=== PATIENT | male | born 1965 | race Caucasian/White ===

== ENCOUNTER 2021-01-20 17:51 | Inpatient (IN) | payer OTHER ==
[~2021-01-20] VITALS: Ht 167.6 cm; Wt 78.5 kg
[2021-01-20 17:51] VITALS: BP_SYST 138
[~2021-01-20 17:51] MED LIST: BUPIVACAINE /DEX PF 0.75% SPINAL 2 ML AMP INJ ONE; BUPIVACAINE /EPINEPHRINE/PF 0.5% 30 ML VIAL INJ ONE; D5W 100 ML IV.SOLN IV ONE; NS 1000 ML IV.SOLN IV ONE; ceFAZolin SODIUM 1 GM VIAL IV ONE
[2021-01-20] MEDS ORDERED: IBUPROFEN 600 MG TABLET PO ONE (18:00)
[2021-01-20] MEDS ORDERED: MORPHINE 4 MG INJ. 4 MG/ML VIAL IVP ONE (18:30)
[2021-01-20 18:42] LABS: BASOPHILS % (AUTO) 0.5 % (0.0-2.0); EOSINOPHILS % (AUTO) 0.7 % (0.0-4.0); HEMATOCRIT 43.6 % (36-54); HEMOGLOBIN 14.8 g/dL (14.0-18.0); LYMPHOCYTES # (AUTO) 1.5 K/uL (1.0-5.5); LYMPHOCYTES % (AUTO) 19.9 % (20.5-51.5); MEAN CORPUSCULAR HEMOGLOBIN 34 pg (27-31); MEAN CORPUSCULAR HGB CONC 34 % (32-36); MEAN CORPUSCULAR VOLUME 101 fL (79.0-98.0); MONOCYTES # (AUTO) 0.4 K/uL (0.0-1.0); MONOCYTES % (AUTO) 5.7 % (1.7-9.3); NEUTROPHILS # (AUTO) 5.3 K/uL (1.8-7.7); NEUTROPHILS % (AUTO) 73.2 % (40.0-70.0); PLATELET COUNT (AUTO) 148 K/uL (130-430); RED BLOOD CELL COUNT(AUTO) 4.31 MIL/uL (4.2-6.2); RED CELL DISTRIBUTION WIDTH 13.1 % (9.0-15.0); WHITE BLOOD COUNT (AUTO) 7.3 K/uL (4.8-10.8)
[2021-01-20] MEDS ORDERED: LISI-209 PO (18:46)
[2021-01-20 18:53] LABS: INR 0.9 (0.80-1.20); PROTHROMBIN TIME 9.3 SECS (9.5-12.5)
[2021-01-20 18:58] LABS: CREATININE 1.55 mg/dL (0.55-1.30); POTASSIUM 3.7 mmol/L (3.5-5.1)
[2021-01-20 19:03] LABS: TOTAL BILIRUBIN 0.5 mg/dL (0.0-1.0)
[2021-01-20] MEDS ORDERED: ONDANSETRON HCL 4 MG/2 ML VIAL IVP PRN (20:00)
[2021-01-20] MEDS ORDERED: DIPH-TET-PERTUS Vaccine 0.5 ML VIAL (ADACEL) I.M. ONE (20:00)
[2021-01-20] MEDS: NACL 0.9% 1,000 ML IV SCH (20:24)
[2021-01-20] MEDS: MORPHINE 4 MG INJ. 4 MG/ML VIAL IVP PRN (22:13)
[2021-01-20 22:19] VITALS: BP_SYST 105
[2021-01-20] MEDS ORDERED: chlordiazePOXIDE HCL 25 MG CAPSULE PO ONE (23:00)
[2021-01-20] MEDS ORDERED: LORazepam 2 MG/ML VIAL IVP PRN (23:00)
[2021-01-20] MEDS ORDERED: AMPICILLIN SODIUM 1 GM VIAL ONE (23:34)
[2021-01-20] MEDS: THIAMINE HCL 100 MG TABLET PO SCH (23:53)
[2021-01-20] MEDS: AMPICILLIN SODIUM 1 GM in NS 50 ML IV SCH (23:53)
[2021-01-21] MEDS ORDERED: AMPICILLIN SODIUM 1 GM VIAL ONE (03:55)
[2021-01-21] MEDS: NACL 0.9% 1,000 ML IV SCH ×2 (05:58→17:56)
[2021-01-21] MEDS: AMPICILLIN SODIUM 1 GM in NS 50 ML IV SCH ×3 (05:58→18:00)
[2021-01-21] MEDS: MORPHINE 4 MG INJ. 4 MG/ML VIAL IVP PRN (06:11)
[2021-01-21] MEDS ORDERED: chlordiazePOXIDE HCL 25 MG CAPSULE PO SCH (09:00)
[2021-01-21] MEDS: FOLIC ACID 1 MG TABLET PO SCH (09:00)
[2021-01-21] MEDS: THIAMINE HCL 100 MG TABLET PO SCH (09:00)
[2021-01-21 09:17] VITALS: BP_SYST 112
[2021-01-21] MEDS ORDERED: NALOXONE HCL 0.4 MG/ML AMP (NARCAN) IVP PRN (11:30)
[2021-01-21 12:05] LABS: BASOPHILS % (AUTO) 0.4 % (0.0-2.0); EOSINOPHILS % (AUTO) 0.1 % (0.0-4.0); MONOCYTES # (AUTO) 0.6 K/uL (0.0-1.0); RED BLOOD CELL COUNT(AUTO) 3.38 MIL/uL (4.2-6.2)
[2021-01-21] MEDS ORDERED: MORPHINE 2 MG/ML INJ. SYRINGE ONE (12:12)
[2021-01-21 12:13] VITALS: BP_SYST 118
[2021-01-21 12:13] LABS: HEMATOCRIT 34.7 % (36-54); HEMOGLOBIN 11.8 g/dL (14.0-18.0); LYMPHOCYTES # (AUTO) 0.9 K/uL (1.0-5.5); LYMPHOCYTES % (AUTO) 17.8 % (20.5-51.5); MEAN CORPUSCULAR HEMOGLOBIN 35 pg (27-31); MEAN CORPUSCULAR HGB CONC 34 % (32-36); MEAN CORPUSCULAR VOLUME 103 fL (79.0-98.0); NEUTROPHILS # (AUTO) 3.6 K/uL (1.8-7.7); NEUTROPHILS % (AUTO) 70.7 % (40.0-70.0); PLATELET COUNT (AUTO) 112 K/uL (130-430); RED CELL DISTRIBUTION WIDTH 13.1 % (9.0-15.0)
[2021-01-21] MEDS: MORPHINE 2 MG/ML INJ. SYRINGE IVP PRN ×2 (12:14→17:44)
[2021-01-21 12:15] LABS: CALCIUM 8.1 mg/dL (8.4-11.0); CREATININE 1.07 mg/dL (0.55-1.30); POTASSIUM 4.4 mmol/L (3.5-5.1)
[2021-01-21 12:20] LABS: ALBUMIN 3.2 g/dL (3.4-4.8); TOTAL BILIRUBIN 0.5 mg/dL (0.0-1.0)
[2021-01-21] MEDS: chlordiazePOXIDE HCL 25 MG CAPSULE PO SCH ×3 (13:00→22:51)
[2021-01-21 16:19] VITALS: BP_SYST 112
[2021-01-21 20:00] VITALS: BP_SYST 115
[2021-01-21 20:32] LABS: BILIRUBIN,URINE NEGATIVE (NEGATIVE); BLOOD, URINE NEGATIVE (NEGATIVE); CLARITY/URINE CLEAR (CLEAR); COLOR,URINE YELLOW (YELLOW); GLUCOSE,URINE NEGATIVE (NEGATIVE); KETONES,URINE 1+ (NEGATIVE); LEUKOCYTE ESTERASE ,URINE NEGATIVE (NEGATIVE); NITRITE, URINE NEGATIVE (NEGATIVE); PH,URINE 5.5 (5.0-8.0); PROTEIN URINE NEGATIVE (NEGATIVE); UROBILINOGEN,URINE 0.2 (0.2-1.0)
[2021-01-22] MEDS: MORPHINE 4 MG INJ. 4 MG/ML VIAL IVP PRN ×4 (00:12→20:12)
[2021-01-22] MEDS: AMPICILLIN SODIUM 1 GM in NS 50 ML IV SCH ×4 (00:16→18:37)
[2021-01-22 01:14] VITALS: BP_SYST 129
[2021-01-22] MEDS: NACL 0.9% 1,000 ML IV SCH ×3 (06:01→22:00)
[2021-01-22 06:49] LABS: ALBUMIN 2.9 g/dL (3.4-4.8); CREATININE 0.92 mg/dL (0.55-1.30); POTASSIUM 3.9 mmol/L (3.5-5.1); TOTAL BILIRUBIN 0.5 mg/dL (0.0-1.0)
[2021-01-22 07:01] LABS: BASOPHILS % (AUTO) 0.5 % (0.0-2.0); EOSINOPHILS % (AUTO) 0.5 % (0.0-4.0); HEMATOCRIT 31.5 % (36-54); HEMOGLOBIN 10.6 g/dL (14.0-18.0); LYMPHOCYTES # (AUTO) 0.9 K/uL (1.0-5.5); LYMPHOCYTES % (AUTO) 15.9 % (20.5-51.5); MEAN CORPUSCULAR HEMOGLOBIN 35 pg (27-31); MEAN CORPUSCULAR HGB CONC 34 % (32-36); MEAN CORPUSCULAR VOLUME 103 fL (79.0-98.0); MONOCYTES # (AUTO) 0.6 K/uL (0.0-1.0); NEUTROPHILS # (AUTO) 4.2 K/uL (1.8-7.7); NEUTROPHILS % (AUTO) 73.1 % (40.0-70.0); PLATELET COUNT (AUTO) 98 K/uL (130-430); RED BLOOD CELL COUNT(AUTO) 3.05 MIL/uL (4.2-6.2); RED CELL DISTRIBUTION WIDTH 13.1 % (9.0-15.0); WHITE BLOOD COUNT (AUTO) 5.7 K/uL (4.8-10.8)
[2021-01-22 08:01] VITALS: BP_SYST 122
[2021-01-22] MEDS: chlordiazePOXIDE HCL 25 MG CAPSULE PO SCH ×4 (11:10→20:13)
[2021-01-22] MEDS: THIAMINE HCL 100 MG TABLET PO SCH (11:10)
[2021-01-22] MEDS: FOLIC ACID 1 MG TABLET PO SCH (11:10)
[2021-01-22 11:28] VITALS: BP_SYST 121
[2021-01-22 15:38] VITALS: BP_SYST 119
[2021-01-22 19:00] VITALS: BP_SYST 127
[2021-01-22 20:00] VITALS: BP_SYST 127
[2021-01-23] MEDS: NACL 0.9% 1,000 ML IV SCH (00:19)
[2021-01-23] MEDS: AMPICILLIN SODIUM 1 GM in NS 50 ML IV SCH ×3 (00:20→12:00)
[2021-01-23 00:40] VITALS: BP_SYST 115
[2021-01-23] MEDS: MORPHINE 4 MG INJ. 4 MG/ML VIAL IVP PRN ×4 (02:49→20:29)
[2021-01-23 06:37] LABS: BASOPHILS % (AUTO) 0.6 % (0.0-2.0); EOSINOPHILS # (AUTO) 0.1 K/uL (0.0-0.4); EOSINOPHILS % (AUTO) 2.6 % (0.0-4.0); HEMATOCRIT 27.8 % (36-54); HEMOGLOBIN 9.5 g/dL (14.0-18.0); LYMPHOCYTES # (AUTO) 1.3 K/uL (1.0-5.5); MEAN CORPUSCULAR HEMOGLOBIN 35 pg (27-31); MEAN CORPUSCULAR HGB CONC 34 % (32-36); MEAN CORPUSCULAR VOLUME 103 fL (79.0-98.0); MONOCYTES # (AUTO) 0.4 K/uL (0.0-1.0); MONOCYTES % (AUTO) 9.5 % (1.7-9.3); NEUTROPHILS # (AUTO) 2.8 K/uL (1.8-7.7); NEUTROPHILS % (AUTO) 60.3 % (40.0-70.0); PLATELET COUNT (AUTO) 103 K/uL (130-430); RED CELL DISTRIBUTION WIDTH 12.8 % (9.0-15.0); WHITE BLOOD COUNT (AUTO) 4.7 K/uL (4.8-10.8)
[2021-01-23 06:57] LABS: ALBUMIN 2.6 g/dL (3.4-4.8); CALCIUM 8.1 mg/dL (8.4-11.0); CREATININE 0.99 mg/dL (0.55-1.30); POTASSIUM 4.1 mmol/L (3.5-5.1); TOTAL BILIRUBIN 0.5 mg/dL (0.0-1.0)
[2021-01-23 08:06] VITALS: BP_SYST 116
[2021-01-23] MEDS: FOLIC ACID 1 MG TABLET PO SCH (08:12)
[2021-01-23] MEDS: chlordiazePOXIDE HCL 25 MG CAPSULE PO SCH ×4 (08:12→20:15)
[2021-01-23] MEDS: THIAMINE HCL 100 MG TABLET PO SCH (08:12)
[2021-01-23] MEDS ORDERED: fentaNYL CITRATE/PF 100 MCG/2 ML AMP IVP PRN ×2 (10:15)
[2021-01-23] MEDS ORDERED: ONDANSETRON HCL 4 MG/2 ML VIAL IVP PRN (10:15)
[2021-01-23] MEDS ORDERED: POLYMYXIN 500,000/BACIT.10,000 UNITS in NS IRR 1 L IR ONE (11:43)
[2021-01-23] MEDS ORDERED: BUPIVACAINE LIPOSOME/PF 266 MG/20 ML VIAL INFIL ONE (12:38)
[2021-01-23 14:45] VITALS: BP_SYST 111
[2021-01-23] MEDS: ACETAMINOPHEN 325 MG TABLET PO PRN (16:38)
[2021-01-23] MEDS: D5LR 1,000 ML IV SCH (17:10)
[2021-01-23 19:50] VITALS: BP_SYST 122
[2021-01-23] MEDS: CEFAZOLIN 1 GM IVPB PREMIX 50 ML IV SCH (22:43)
[2021-01-23] MEDS: HYDROmorphone 1 MG/ML INJ. CARTRIDGE IVP PRN (22:52)
[2021-01-24] VITALS: BP_SYST 115
[2021-01-24] MEDS: D5LR 1,000 ML IV SCH ×3 (03:02→23:58)
[2021-01-24] MEDS: HYDROmorphone 1 MG/ML INJ. CARTRIDGE IVP PRN ×5 (03:09→21:33)
[2021-01-24] MEDS: CEFAZOLIN 1 GM IVPB PREMIX 50 ML IV SCH (05:23)
[2021-01-24 07:48] LABS: BASOPHILS % (AUTO) 0.3 % (0.0-2.0); HEMATOCRIT 25.5 % (36-54); LYMPHOCYTES # (AUTO) 0.5 K/uL (1.0-5.5); LYMPHOCYTES % (AUTO) 8.9 % (20.5-51.5); MEAN CORPUSCULAR HEMOGLOBIN 35 pg (27-31); MEAN CORPUSCULAR HGB CONC 34 % (32-36); MEAN CORPUSCULAR VOLUME 101 fL (79.0-98.0); MONOCYTES # (AUTO) 0.6 K/uL (0.0-1.0); MONOCYTES % (AUTO) 9.8 % (1.7-9.3); NEUTROPHILS # (AUTO) 4.6 K/uL (1.8-7.7); PLATELET COUNT (AUTO) 123 K/uL (130-430); RED BLOOD CELL COUNT(AUTO) 2.52 MIL/uL (4.2-6.2); RED CELL DISTRIBUTION WIDTH 12.6 % (9.0-15.0); WHITE BLOOD COUNT (AUTO) 5.7 K/uL (4.8-10.8)
[2021-01-24 08:00] VITALS: BP_SYST 137
[2021-01-24 08:46] LABS: HEMOGLOBIN 8.8 g/dL (14.0-18.0)
[2021-01-24] MEDS: lisinopriL 5 MG TABLET PO SCH (10:08)
[2021-01-24] MEDS: THIAMINE HCL 100 MG TABLET PO SCH (10:08)
[2021-01-24] MEDS: chlordiazePOXIDE HCL 25 MG CAPSULE PO SCH ×4 (10:08→21:31)
[2021-01-24] MEDS: FOLIC ACID 1 MG TABLET PO SCH (10:08)
[2021-01-24 11:26] VITALS: BP_SYST 128
[2021-01-24 15:01] VITALS: BP_SYST 130
[2021-01-24 19:52] VITALS: BP_SYST 109
[2021-01-24] MEDS: ACETAMINOPHEN 325 MG TABLET PO PRN (19:58)
[2021-01-24] MEDS: TEMAZEPAM 15 MG CAPSULE PO SCH (21:00)
[2021-01-24] MEDS: ENOXAPARIN SODIUM 40 MG/0.4 ML SYRINGE SUBCUT SCH (21:32)
[2021-01-24 23:52] VITALS: BP_SYST 101
[2021-01-25 06:51] LABS: BASOPHILS % (AUTO) 0.5 % (0.0-2.0); EOSINOPHILS # (AUTO) 0.1 K/uL (0.0-0.4); EOSINOPHILS % (AUTO) 2.3 % (0.0-4.0); HEMATOCRIT 24.3 % (36-54); HEMOGLOBIN 8.2 g/dL (14.0-18.0); LYMPHOCYTES # (AUTO) 0.8 K/uL (1.0-5.5); LYMPHOCYTES % (AUTO) 15.2 % (20.5-51.5); MEAN CORPUSCULAR HEMOGLOBIN 35 pg (27-31); MEAN CORPUSCULAR HGB CONC 34 % (32-36); MEAN CORPUSCULAR VOLUME 103 fL (79.0-98.0); MONOCYTES # (AUTO) 0.6 K/uL (0.0-1.0); MONOCYTES % (AUTO) 10.7 % (1.7-9.3); NEUTROPHILS # (AUTO) 3.8 K/uL (1.8-7.7); NEUTROPHILS % (AUTO) 71.3 % (40.0-70.0); PLATELET COUNT (AUTO) 128 K/uL (130-430); RED BLOOD CELL COUNT(AUTO) 2.37 MIL/uL (4.2-6.2); RED CELL DISTRIBUTION WIDTH 12.8 % (9.0-15.0); WHITE BLOOD COUNT (AUTO) 5.3 K/uL (4.8-10.8)
[2021-01-25 07:00] LABS: CALCIUM 8.3 mg/dL (8.4-11.0); POTASSIUM 4.1 mmol/L (3.5-5.1)
[2021-01-25 08:00] VITALS: BP_SYST 103
[2021-01-25] MEDS: THIAMINE HCL 100 MG TABLET PO SCH (08:33)
[2021-01-25] MEDS: FOLIC ACID 1 MG TABLET PO SCH (08:33)
[2021-01-25] MEDS: HYDROmorphone 1 MG/ML INJ. CARTRIDGE IVP PRN (08:36)
[2021-01-25] MEDS: chlordiazePOXIDE HCL 25 MG CAPSULE PO SCH ×2 (08:36→13:00)
[2021-01-25] MEDS: lisinopriL 5 MG TABLET PO SCH (09:00)
[2021-01-25] MEDS: D5LR 1,000 ML IV SCH (10:52)
[2021-01-25 11:28] VITALS: BP_SYST 108
[2021-01-25] MEDS: SOD FERRIC GLUC COMPLEX/SUC 125 MG in NS 100 ML IV SCH (13:21)
[2021-01-25 13:27] LABS: TOTAL IRON BIND. CAPACITY 158 ug/dL (250-450)
[2021-01-25] MEDS: MORPHINE 4 MG INJ. 4 MG/ML VIAL IVP PRN (15:14)
[2021-01-25 15:18] VITALS: BP_SYST 117
[2021-01-25] MEDS ORDERED: NALOXONE HCL 0.4 MG/ML AMP (NARCAN) IVP PRN ×2 (15:30)
[2021-01-25] MEDS ORDERED: BISACODYL 10 MG/SUPPOSITORY RC PRN (15:30)
[2021-01-25] MEDS ORDERED: BISACODYL 5 MG TABLET.DR (DULCOLAX) PO PRN (15:30)
[2021-01-25] MEDS ORDERED: MAGNESIUM OXIDE 400 MG TABLET PO ONE (16:00)
[2021-01-25] MEDS ORDERED: DOCUSATE SODIUM 250 MG CAPSULE PO ONE (16:15)
[2021-01-25] MEDS: HYDROcodone/ACETAMIN 10-325 MG TAB PO PRN (19:52)
[2021-01-25 20:00] VITALS: BP_SYST 100
[2021-01-25] MEDS: MAGNESIUM OXIDE 400 MG TABLET PO SCH (21:09)
[2021-01-25] MEDS: TEMAZEPAM 15 MG CAPSULE PO SCH (21:10)
[2021-01-25] MEDS: DOCUSATE SODIUM 250 MG CAPSULE PO SCH (21:10)
[2021-01-25] MEDS: ACETAMINOPHEN 325 MG TABLET PO PRN (21:11)
[2021-01-25] MEDS: ENOXAPARIN SODIUM 40 MG/0.4 ML SYRINGE SUBCUT SCH (21:18)
[2021-01-26] MEDS: D5LR 1,000 ML IV SCH (00:02)
[2021-01-26 00:25] VITALS: BP_SYST 115
[2021-01-26] MEDS: HYDROcodone/ACETAMIN 10-325 MG TAB PO PRN ×5 (04:30→23:03)
[2021-01-26 06:31] LABS: BASOPHILS % (AUTO) 0.7 % (0.0-2.0); EOSINOPHILS # (AUTO) 0.2 K/uL (0.0-0.4); EOSINOPHILS % (AUTO) 6.2 % (0.0-4.0); HEMATOCRIT 22.2 % (36-54); HEMOGLOBIN 7.5 g/dL (14.0-18.0); LYMPHOCYTES # (AUTO) 0.8 K/uL (1.0-5.5); LYMPHOCYTES % (AUTO) 22.3 % (20.5-51.5); MEAN CORPUSCULAR HEMOGLOBIN 35 pg (27-31); MEAN CORPUSCULAR HGB CONC 34 % (32-36); MEAN CORPUSCULAR VOLUME 102 fL (79.0-98.0); MONOCYTES # (AUTO) 0.4 K/uL (0.0-1.0); MONOCYTES % (AUTO) 10.3 % (1.7-9.3); NEUTROPHILS # (AUTO) 2.3 K/uL (1.8-7.7); NEUTROPHILS % (AUTO) 60.5 % (40.0-70.0); PLATELET COUNT (AUTO) 140 K/uL (130-430); RED BLOOD CELL COUNT(AUTO) 2.18 MIL/uL (4.2-6.2); RED CELL DISTRIBUTION WIDTH 12.5 % (9.0-15.0); RETICULOCYTE COUNT 2.4 % (0.5-1.5); WHITE BLOOD COUNT (AUTO) 3.8 K/uL (4.8-10.8)
[2021-01-26 06:34] LABS: CALCIUM 7.9 mg/dL (8.4-11.0); CREATININE 0.96 mg/dL (0.55-1.30)
[2021-01-26 08:00] VITALS: BP_SYST 107
[2021-01-26] MEDS: MAGNESIUM OXIDE 400 MG TABLET PO SCH ×2 (08:13→21:00)
[2021-01-26] MEDS: lisinopriL 5 MG TABLET PO SCH (08:14)
[2021-01-26] MEDS: MULTIVITS,CA,MINERALS/IRON/FA 1 TABLET PO SCH (08:14)
[2021-01-26] MEDS: THIAMINE HCL 100 MG TABLET PO SCH (08:14)
[2021-01-26] MEDS: FOLIC ACID 1 MG TABLET PO SCH (08:14)
[2021-01-26] MEDS: DOCUSATE SODIUM 250 MG CAPSULE PO SCH ×2 (08:14→22:07)
[2021-01-26] MEDS: HYDROmorphone 1 MG/ML INJ. CARTRIDGE IVP PRN (11:18)
[2021-01-26 12:57] VITALS: BP_SYST 110
[2021-01-26] MEDS: SOD FERRIC GLUC COMPLEX/SUC 125 MG in NS 100 ML IV SCH (13:27)
[2021-01-26] MEDS ORDERED: MAGNESIUM CITRATE 300 ML ORAL SOLUTION PO ONE (14:00)
[2021-01-26] MEDS ORDERED: PANTOPRAZOLE SODIUM 40 MG/VIAL (PROTONIX) IVP ONE (14:00)
[2021-01-26 16:00] VITALS: BP_SYST 117
[2021-01-26 20:00] VITALS: BP_SYST 131
[2021-01-26] MEDS: TEMAZEPAM 15 MG CAPSULE PO SCH (22:02)
[2021-01-26] MEDS: PANTOPRAZOLE SODIUM 40 MG/VIAL (PROTONIX) IVP SCH (22:07)
[2021-01-26] MEDS: ENOXAPARIN SODIUM 40 MG/0.4 ML SYRINGE SUBCUT SCH (22:34)
[2021-01-27] MEDS: ACETAMINOPHEN 325 MG TABLET PO PRN (00:08)
[2021-01-27 03:08] VITALS: BP_SYST 128
[2021-01-27] MEDS: HYDROmorphone 1 MG/ML INJ. CARTRIDGE IVP PRN (03:44)
[2021-01-27] MEDS: D5LR 1,000 ML IV SCH (05:29)
[2021-01-27 06:54] LABS: BASOPHILS % (AUTO) 0.8 % (0.0-2.0); EOSINOPHILS # (AUTO) 0.2 K/uL (0.0-0.4); EOSINOPHILS % (AUTO) 4.9 % (0.0-4.0); LYMPHOCYTES # (AUTO) 0.9 K/uL (1.0-5.5); MEAN CORPUSCULAR HEMOGLOBIN 35 pg (27-31); MEAN CORPUSCULAR HGB CONC 34 % (32-36); MEAN CORPUSCULAR VOLUME 102 fL (79.0-98.0); MONOCYTES # (AUTO) 0.3 K/uL (0.0-1.0); MONOCYTES % (AUTO) 7.8 % (1.7-9.3); NEUTROPHILS # (AUTO) 2.4 K/uL (1.8-7.7); NEUTROPHILS % (AUTO) 63.5 % (40.0-70.0); PLATELET COUNT (AUTO) 176 K/uL (130-430); RED BLOOD CELL COUNT(AUTO) 2.08 MIL/uL (4.2-6.2); RED CELL DISTRIBUTION WIDTH 12.8 % (9.0-15.0); WHITE BLOOD COUNT (AUTO) 3.8 K/uL (4.8-10.8)
[2021-01-27 06:59] LABS: CREATININE 0.98 mg/dL (0.55-1.30); POTASSIUM 4.6 mmol/L (3.5-5.1)
[2021-01-27 07:15] LABS: HEMATOCRIT 21.2 % (36-54); HEMOGLOBIN 7.2 g/dL (14.0-18.0)
[2021-01-27] MEDS: MULTIVITS,CA,MINERALS/IRON/FA 1 TABLET PO SCH (08:51)
[2021-01-27] MEDS: THIAMINE HCL 100 MG TABLET PO SCH (08:51)
[2021-01-27] MEDS: FOLIC ACID 1 MG TABLET PO SCH (08:51)
[2021-01-27] MEDS: lisinopriL 5 MG TABLET PO SCH (08:51)
[2021-01-27] MEDS: PANTOPRAZOLE SODIUM 40 MG/VIAL (PROTONIX) IVP SCH ×2 (08:51→21:42)
[2021-01-27] MEDS: DOCUSATE SODIUM 250 MG CAPSULE PO SCH ×2 (08:52→21:41)
[2021-01-27] MEDS: MAGNESIUM OXIDE 400 MG TABLET PO SCH ×2 (08:52→21:42)
[2021-01-27 08:55] VITALS: BP_SYST 112
[2021-01-27] MEDS: HYDROcodone/ACETAMIN 5-325 MG TAB (NORCO/ VICODIN) PO PRN (08:58)
[2021-01-27 12:00] VITALS: BP_SYST 116
[2021-01-27] MEDS: SOD FERRIC GLUC COMPLEX/SUC 125 MG in NS 100 ML IV SCH (14:02)
[2021-01-27 16:12] VITALS: BP_SYST 115
[2021-01-27] MEDS ORDERED: CHOLECALCIFEROL (VITAMIN D3) 5,000 UNIT TABLET PO ONE (17:15)
[2021-01-27] MEDS ORDERED: EPOETIN ALFA 4,000 UNITS/ML VIAL SUBCUT ONE (18:00)
[2021-01-27] MEDS: HYDROcodone/ACETAMIN 10-325 MG TAB PO PRN (19:52)
[2021-01-27 20:00] VITALS: BP_SYST 106
[2021-01-27] MEDS: ENOXAPARIN SODIUM 40 MG/0.4 ML SYRINGE SUBCUT SCH (21:40)
[2021-01-27] MEDS: TEMAZEPAM 15 MG CAPSULE PO SCH (21:42)
[2021-01-28 03:25] VITALS: BP_SYST 119
[2021-01-28] MEDS: D5LR 1,000 ML IV SCH (05:19)
[2021-01-28 06:32] LABS: BASOPHILS % (AUTO) 1.1 % (0.0-2.0); EOSINOPHILS # (AUTO) 0.1 K/uL (0.0-0.4); EOSINOPHILS % (AUTO) 3.7 % (0.0-4.0); HEMOGLOBIN 7.2 g/dL (14.0-18.0); LYMPHOCYTES # (AUTO) 0.6 K/uL (1.0-5.5); LYMPHOCYTES % (AUTO) 15.7 % (20.5-51.5); MEAN CORPUSCULAR HEMOGLOBIN 35 pg (27-31); MEAN CORPUSCULAR HGB CONC 34 % (32-36); MEAN CORPUSCULAR VOLUME 102 fL (79.0-98.0); MONOCYTES # (AUTO) 0.3 K/uL (0.0-1.0); NEUTROPHILS # (AUTO) 2.9 K/uL (1.8-7.7); NEUTROPHILS % (AUTO) 71.5 % (40.0-70.0); PLATELET COUNT (AUTO) 198 K/uL (130-430); RED BLOOD CELL COUNT(AUTO) 2.06 MIL/uL (4.2-6.2); RED CELL DISTRIBUTION WIDTH 12.8 % (9.0-15.0)
[2021-01-28 06:40] LABS: CREATININE 0.92 mg/dL (0.55-1.30); POTASSIUM 3.8 mmol/L (3.5-5.1)
[2021-01-28 07:27] LABS: HEMATOCRIT 20.9 % (36-54)
[2021-01-28 07:56] VITALS: BP_SYST 118
[2021-01-28] MEDS: DOCUSATE SODIUM 250 MG CAPSULE PO SCH ×2 (09:03→21:44)
[2021-01-28] MEDS: THIAMINE HCL 100 MG TABLET PO SCH (09:03)
[2021-01-28] MEDS: FERROUS SULFATE 325 MG TABLET.DR PO SCH ×2 (09:03→21:44)
[2021-01-28] MEDS: FOLIC ACID 1 MG TABLET PO SCH (09:03)
[2021-01-28] MEDS: MULTIVITS,CA,MINERALS/IRON/FA 1 TABLET PO SCH (09:04)
[2021-01-28] MEDS: MAGNESIUM OXIDE 400 MG TABLET PO SCH ×2 (09:04→21:44)
[2021-01-28] MEDS: CHOLECALCIFEROL (VITAMIN D3) 5,000 UNIT TABLET PO SCH (09:04)
[2021-01-28] MEDS: lisinopriL 5 MG TABLET PO SCH (09:04)
[2021-01-28] MEDS ORDERED: EPOETIN ALFA 4,000 UNITS/ML VIAL SUBCUT ONE (09:15)
[2021-01-28] MEDS ORDERED: PANTOPRAZOLE SODIUM 40 MG TAB PO ONE (09:15)
[2021-01-28] MEDS: HYDROcodone/ACETAMIN 5-325 MG TAB (NORCO/ VICODIN) PO PRN ×2 (09:25→19:29)
[2021-01-28] MEDS ORDERED: HYDR-3919 PO (10:02)
[2021-01-28] MEDS ORDERED: [UNRECOGNIZED DRUG - OTHER] PO (10:02)
[2021-01-28] MEDS ORDERED: Bisacodyl Suppository RC (10:02)
[2021-01-28] MEDS ORDERED: CHOL500013 PO (10:02)
[2021-01-28] MEDS ORDERED: TEMA15CA5 PO (10:02)
[2021-01-28] MEDS ORDERED: DOCU250C71 PO (10:02)
[2021-01-28] MEDS ORDERED: IRON PO (10:02)
[2021-01-28] MEDS ORDERED: PRO40 PO (10:02)
[2021-01-28] MEDS ORDERED: BISA-79 PO (10:02)
[2021-01-28] MEDS ORDERED: ACET325T PO (10:02)
[2021-01-28] MEDS ORDERED: MULTIVITS CA MINERALS PO (10:02)
[2021-01-28] MEDS ORDERED: LOVI40 SUBCUT (10:02)
[2021-01-28] MEDS ORDERED: HYDR-3927 PO (10:02)
[2021-01-28] MEDS ORDERED: MAGN400T10 PO (10:02)
[2021-01-28] MEDS: SOD FERRIC GLUC COMPLEX/SUC 125 MG in NS 100 ML IV SCH (10:25)
[2021-01-28 12:36] VITALS: BP_SYST 119
[2021-01-28 16:55] VITALS: BP_SYST 110
[2021-01-28 20:00] VITALS: BP_SYST 119
[2021-01-28] MEDS: PANTOPRAZOLE SODIUM 40 MG TAB PO SCH (21:44)
[2021-01-28] MEDS: ENOXAPARIN SODIUM 40 MG/0.4 ML SYRINGE SUBCUT SCH (21:45)
[2021-01-28] MEDS: TEMAZEPAM 15 MG CAPSULE PO SCH (21:52)
[2021-01-29 00:37] VITALS: BP_SYST 134
[2021-01-29] MEDS: HYDROcodone/ACETAMIN 5-325 MG TAB (NORCO/ VICODIN) PO PRN (04:07)
[2021-01-29 08:45] VITALS: BP_SYST 123
[2021-01-29] MEDS: DOCUSATE SODIUM 250 MG CAPSULE PO SCH (09:00)
[2021-01-29] MEDS: CHOLECALCIFEROL (VITAMIN D3) 5,000 UNIT TABLET PO SCH (09:12)
[2021-01-29] MEDS: THIAMINE HCL 100 MG TABLET PO SCH (09:12)
[2021-01-29] MEDS: FOLIC ACID 1 MG TABLET PO SCH (09:13)
[2021-01-29] MEDS: MAGNESIUM OXIDE 400 MG TABLET PO SCH (09:13)
[2021-01-29] MEDS: PANTOPRAZOLE SODIUM 40 MG TAB PO SCH (09:13)
[2021-01-29] MEDS: FERROUS SULFATE 325 MG TABLET.DR PO SCH (09:13)
[2021-01-29] MEDS: MULTIVITS,CA,MINERALS/IRON/FA 1 TABLET PO SCH (09:13)
[2021-01-29] MEDS: lisinopriL 5 MG TABLET PO SCH (09:14)
[2021-01-29] MEDS: SOD FERRIC GLUC COMPLEX/SUC 125 MG in NS 100 ML IV SCH (09:15)
[2021-01-29] MEDS: HYDROcodone/ACETAMIN 10-325 MG TAB PO PRN (09:21)
[2021-01-29 10:06] VITALS: BP_SYST 127
[2021-01-29 10:24] LABS: BASOPHILS % (AUTO) 0.9 % (0.0-2.0); EOSINOPHILS # (AUTO) 0.1 K/uL (0.0-0.4); EOSINOPHILS % (AUTO) 2.8 % (0.0-4.0); HEMATOCRIT 24.8 % (36-54); HEMOGLOBIN 8.5 g/dL (14.0-18.0); LYMPHOCYTES # (AUTO) 0.8 K/uL (1.0-5.5); LYMPHOCYTES % (AUTO) 16.3 % (20.5-51.5); MEAN CORPUSCULAR HEMOGLOBIN 35 pg (27-31); MEAN CORPUSCULAR HGB CONC 34 % (32-36); MEAN CORPUSCULAR VOLUME 103 fL (79.0-98.0); MONOCYTES # (AUTO) 0.4 K/uL (0.0-1.0); MONOCYTES % (AUTO) 7.4 % (1.7-9.3); NEUTROPHILS # (AUTO) 3.7 K/uL (1.8-7.7); NEUTROPHILS % (AUTO) 72.6 % (40.0-70.0); PLATELET COUNT (AUTO) 255 K/uL (130-430); RED BLOOD CELL COUNT(AUTO) 2.41 MIL/uL (4.2-6.2); RED CELL DISTRIBUTION WIDTH 13.3 % (9.0-15.0)
[2021-01-29 10:34] LABS: CALCIUM 8.5 mg/dL (8.4-11.0); CREATININE 1.03 mg/dL (0.55-1.30); POTASSIUM 3.5 mmol/L (3.5-5.1)
== END 2021-01-29 11:05 | DRG 493 ==
LOC: SED 17:51 → STU 20:07 → SMU 01-28 11:02
PROVIDERS: ADMIT Internal Medicine; ATTEND Internal Medicine
PROC: 2W3RX1Z Immobilization of Left Lower Leg using Splint (ICD-10-PCS; principal; 2021-01-20)
PROC: 0QSH04Z Reposition Left Tibia with Internal Fixation Device, Open Approach (ICD-10-PCS; 2021-01-23)
DX: S82.142A Displaced bicondylar fracture of left tibia, initial encounter for closed fracture (principal); D62 Acute posthemorrhagic anemia; S82.832A Other fracture of upper and lower end of left fibula, initial encounter for closed fracture; S90.512A Abrasion, left ankle, initial encounter; I10 Essential (primary) hypertension; D69.6 Thrombocytopenia, unspecified; D72.819 Decreased white blood cell count, unspecified; Z20.822 Contact with and (suspected) exposure to COVID-19; R00.0 Tachycardia, unspecified; V89.2XXA Person injured in unspecified motor-vehicle accident, traffic, initial encounter; Y99.8 Other external cause status; Y92.89 Other specified places as the place of occurrence of the external cause; Y93.89 Activity, other specified; Z88.8 Allergy status to other drugs, medicaments and biological substances; Z79.899 Other long term (current) drug therapy
CPT/HCPCS: 36415; 70450-TC; 71045; 73560-TC; 73590-TC; 73700-TC; 76000; 76376; 76700-TC; 80048; 80053; 81003; 82272; 82550; 82607; 83540; 83550; 83735; 85025; 85044; 85610-TC; 85730-TC; 86886; 86900; 86901; 87081; 90715; 93005; 96374; 97110-GO; 97110-GP; 97112-GP; 97116-GP; 97163; 97530-GO; 97530-GP; 97535-GO; 99285; C9113; C9290; G0378; J0290; J0690; J0885; J1170; J1650; J2270; J2916; J3490; J7030; J7060; J7120

== ENCOUNTER 2021-05-21 07:08 | Day surgery (SDC) | payer OTHER, SELFPAY ==
[2021-05-18 12:07] LABS: BILIRUBIN,URINE NEGATIVE (NEGATIVE); BLOOD, URINE NEGATIVE (NEGATIVE); CLARITY/URINE CLEAR (CLEAR); COLOR,URINE YELLOW (YELLOW); GLUCOSE,URINE NEGATIVE (NEGATIVE); KETONES,URINE NEGATIVE (NEGATIVE); LEUKOCYTE ESTERASE ,URINE NEGATIVE (NEGATIVE); NITRITE, URINE NEGATIVE (NEGATIVE); PH,URINE 5.5 (5.0-8.0); PROTEIN URINE NEGATIVE (NEGATIVE); UROBILINOGEN,URINE 0.2 (0.2-1.0)
[2021-05-18 12:14] LABS: BASOPHILS % (AUTO) 0.9 % (0.0-2.0); EOSINOPHILS # (AUTO) 0.1 K/uL (0.0-0.4); EOSINOPHILS % (AUTO) 1.6 % (0.0-4.0); HEMATOCRIT 42.3 % (36-54); HEMOGLOBIN 14.5 g/dL (14.0-18.0); LYMPHOCYTES # (AUTO) 1.1 K/uL (1.0-5.5); LYMPHOCYTES % (AUTO) 24.8 % (20.5-51.5); MEAN CORPUSCULAR HEMOGLOBIN 33 pg (27-31); MEAN CORPUSCULAR HGB CONC 34 % (32-36); MEAN CORPUSCULAR VOLUME 97 fL (79.0-98.0); MONOCYTES # (AUTO) 0.4 K/uL (0.0-1.0); MONOCYTES % (AUTO) 8.6 % (1.7-9.3); NEUTROPHILS # (AUTO) 2.7 K/uL (1.8-7.7); NEUTROPHILS % (AUTO) 64.1 % (40.0-70.0); PLATELET COUNT (AUTO) 155 K/uL (130-430); RED BLOOD CELL COUNT(AUTO) 4.37 MIL/uL (4.2-6.2); RED CELL DISTRIBUTION WIDTH 15.1 % (9.0-15.0); WHITE BLOOD COUNT (AUTO) 4.3 K/uL (4.8-10.8)
[2021-05-18 12:35] LABS: CALCIUM 9.7 mg/dL (8.4-11.0); CREATININE 0.89 mg/dL (0.55-1.30)
[2021-05-18 12:56] LABS: INR 0.9 (0.80-1.20); PROTHROMBIN TIME 9.6 SECS (9.5-12.5)
[~2021-05-21] VITALS: Ht 167.6 cm; Wt 77.1 kg
[~2021-05-21 07:08] MED LIST changes: +ACET325T PO; +BISA-79 PO; -BUPIVACAINE /DEX PF 0.75% SPINAL 2 ML AMP INJ ONE; -BUPIVACAINE /EPINEPHRINE/PF 0.5% 30 ML VIAL INJ ONE; +Bisacodyl Suppository RC; +CHOL500013 PO; -D5W 100 ML IV.SOLN IV ONE; +DOCU250C71 PO; +HYDR-3919 PO; +HYDR-3927 PO; +IRON PO; +LISI-209 PO; +LOVI40 SUBCUT; +MAGN400T10 PO; +MULTIVITS CA MINERALS PO; -NS 1000 ML IV.SOLN IV ONE; +PRO40 PO; +TEMA15CA5 PO; +[UNRECOGNIZED DRUG - OTHER] PO; -ceFAZolin SODIUM 1 GM VIAL IV ONE
[2021-05-21] MEDS ORDERED: POLYMYXIN 500,000/BACIT.10,000 UNITS in NS IRR 1 L IR ONE (08:48)
[2021-05-21] MEDS ORDERED: HYDROmorphone 1 MG/ML INJ. CARTRIDGE IVP PRN (09:30)
[2021-05-21] MEDS ORDERED: HYDROmorphone 2 MG/ML VIAL IVP PRN (09:30)
[2021-05-21] MEDS ORDERED: LR 1,000 ML IV SCH (09:30)
[2021-05-21] MEDS ORDERED: KETOROLAC TROMETHAMINE 30 MG VIAL IVP PRN (09:30)
[2021-05-21] MEDS ORDERED: PHENYLEPHRINE HCL 10 MG/ML VIAL (NEOSYNEPHRINE) ONE (10:05)
[2021-05-21] MEDS ORDERED: PROPOFOL 200MG/ 20ML VIAL (DIPRIVAN) IV ONE (10:05)
[2021-05-21] MEDS ORDERED: CEFAZOLIN 2 GM IVPB PREMIX 50 ML IV ONE (10:05)
[2021-05-21] MEDS ORDERED: ePHEDrine sulfate 50 MG/ML VIAL ONE (10:05)
[2021-05-21] MEDS ORDERED: fentaNYL CITRATE/PF 100 MCG/2 ML AMP ONE (10:05)
[2021-05-21] MEDS ORDERED: GLYCOPYRROLATE 0.2 MG/ML VIAL ONE (10:05)
[2021-05-21] MEDS ORDERED: SEVOFLURANE 15 MIN GAS INH ONE (10:05)
[2021-05-21] MEDS ORDERED: LR 1,000 ML IV.SOLN IV ONE (10:05)
[2021-05-21] MEDS ORDERED: ONDANSETRON HCL 4 MG/2 ML VIAL ONE (10:05)
[2021-05-21] MEDS ORDERED: METOCLOPRAMIDE HCL 10 MG/2 ML VIAL ONE (10:05)
[2021-05-21] MEDS ORDERED: BUPIVACAINE /EPINEPHRINE/PF 0.5% 30 ML VIAL INJ ONE (10:05)
[2021-05-21] MEDS ORDERED: MIDAZOLAM HCL 5 MG/ML VIAL (VERSED) IV ONE (10:05)
[2021-05-21 11:18] VITALS: BP_SYST 121
== END 2021-05-21 11:40 | disposition home or self-care (01) ==
LOC: SDS 07:08 → SMU 07:10 → SDS 11:40
PROVIDERS: ATTEND Orthopaedic Surgery
DX: T85.848A Pain due to other internal prosthetic devices, implants and grafts, initial encounter (principal); I10 Essential (primary) hypertension; Z20.822 Contact with and (suspected) exposure to COVID-19; Z79.899 Other long term (current) drug therapy; Y82.8 Other medical devices associated with adverse incidents
CPT/HCPCS: 20680; 36415; 80048; 81003; 85025; 85610; 85730; 93005; J0690; J2250; J2370; J2405; J2704; J2765; J3010; J3490 ×2; J7120; U0003

== ENCOUNTER 2021-10-29 05:28 | Day surgery (SDC) | payer OTHER, SELFPAY ==
[2021-10-27 16:45] LABS: BASOPHILS % (AUTO) 0.8 % (0.0-2.0); EOSINOPHILS # (AUTO) 0.1 K/uL (0.0-0.4); EOSINOPHILS % (AUTO) 3.1 % (0.0-4.0); HEMATOCRIT 41.3 % (36-54); HEMOGLOBIN 14.1 g/dL (14.0-18.0); LYMPHOCYTES # (AUTO) 1.1 K/uL (1.0-5.5); LYMPHOCYTES % (AUTO) 23.1 % (20.5-51.5); MEAN CORPUSCULAR HEMOGLOBIN 34 pg (27-31); MEAN CORPUSCULAR HGB CONC 34 % (32-36); MEAN CORPUSCULAR VOLUME 100 fL (79.0-98.0); MONOCYTES # (AUTO) 0.4 K/uL (0.0-1.0); MONOCYTES % (AUTO) 8.1 % (1.7-9.3); NEUTROPHILS # (AUTO) 3.2 K/uL (1.8-7.7); NEUTROPHILS % (AUTO) 64.9 % (40.0-70.0); PLATELET COUNT (AUTO) 140 K/uL (130-430); RED BLOOD CELL COUNT(AUTO) 4.12 MIL/uL (4.2-6.2); RED CELL DISTRIBUTION WIDTH 12.9 % (9.0-15.0); WHITE BLOOD COUNT (AUTO) 4.9 K/uL (4.8-10.8)
[2021-10-27 17:05] LABS: BILIRUBIN,URINE NEGATIVE (NEGATIVE); BLOOD, URINE NEGATIVE (NEGATIVE); CLARITY/URINE CLEAR (CLEAR); COLOR,URINE YELLOW (YELLOW); GLUCOSE,URINE NEGATIVE (NEGATIVE); KETONES,URINE NEGATIVE (NEGATIVE); LEUKOCYTE ESTERASE ,URINE NEGATIVE (NEGATIVE); NITRITE, URINE NEGATIVE (NEGATIVE); PROTEIN URINE NEGATIVE (NEGATIVE); UROBILINOGEN,URINE 0.2 (0.2-1.0)
[2021-10-27 17:13] LABS: ALBUMIN 3.6 g/dL (3.4-4.8); CALCIUM 8.4 mg/dL (8.4-11.0); CREATININE 1.01 mg/dL (0.55-1.30); TOTAL BILIRUBIN 0.4 mg/dL (0.0-1.0)
[~2021-10-29] VITALS: Ht 167.6 cm; Wt 79.4 kg
[2021-10-29] MEDS ORDERED: IBUPROFEN 800 MG TABLET PO ONE (08:45)
[2021-10-29] MEDS ORDERED: ONDANSETRON HCL 4 MG/2 ML VIAL IVP PRN (08:45)
[2021-10-29] MEDS ORDERED: HYDROmorphone 1 MG/ML INJ. CARTRIDGE IVP PRN (08:45)
[2021-10-29] MEDS ORDERED: KETOROLAC TROMETHAMINE 30 MG VIAL IVP PRN (08:45)
[2021-10-29] MEDS ORDERED: KETOROLAC TROMETHAMINE 30 MG VIAL ONE (10:45)
[2021-10-29] MEDS ORDERED: BUPIVACAINE /EPINEPHRINE/PF 0.25% 30 ML VIAL INJ ONE (10:45)
[2021-10-29] MEDS ORDERED: SEVOFLURANE 15 MIN GAS INH ONE (10:45)
[2021-10-29] MEDS ORDERED: fentaNYL CITRATE 250 MCG/5 ML AMP ONE (10:45)
[2021-10-29] MEDS ORDERED: NS IRRIG SOLN 1000 ML IR ONE (10:45)
[2021-10-29] MEDS ORDERED: PROPOFOL 200MG/ 20ML VIAL (DIPRIVAN) IV ONE (10:45)
[2021-10-29] MEDS ORDERED: ONDANSETRON HCL 4 MG/2 ML VIAL ONE (10:45)
[2021-10-29] MEDS ORDERED: LR 1,000 ML IV.SOLN IV ONE (10:45)
[2021-10-29] MEDS: HYDROmorphone 1 MG/ML INJ. CARTRIDGE ONE ×2 (10:52→11:18)
[2021-10-29] MEDS ORDERED: HYDROmorphone 2 MG/ML VIAL IVP PRN (11:00)
[2021-10-29] MEDS ORDERED: HYDROcodone/ACETAMIN 5-325 MG TAB (NORCO/ VICODIN) PO PRN ×2 (11:00)
[2021-10-29] MEDS ORDERED: ACETAMINOPHEN I.V. 1000 MG 100 ML IV ONE (11:45)
[2021-10-29 14:08] VITALS: BP_SYST 129
== END 2021-10-29 13:20 | disposition home or self-care (01) ==
LOC: SDS 05:28
PROVIDERS: ATTEND Orthopaedic Surgery
DX: T84.84XA Pain due to internal orthopedic prosthetic devices, implants and grafts, initial encounter (principal); I10 Essential (primary) hypertension; K21.9 Gastro-esophageal reflux disease without esophagitis; Z79.01 Long term (current) use of anticoagulants; Z79.899 Other long term (current) drug therapy; Z20.822 Contact with and (suspected) exposure to COVID-19
CPT/HCPCS: 20680; 27599; 36415 ×2; 73560; 80053; 81003; 85025; 87426; 88300; 88305; 88311; 93005; J0131; J1170; J1885; J2405; J2704; J3010; J3490; J7120; U0003